=== PATIENT | male | born 1940 | race Caucasian/White ===

== ENCOUNTER 2020-10-18 16:17 | Observation (INO) | payer OTHER ==
[2020-10-18] MEDS ORDERED: MECLIZINE HCL 25 MG TABLET (FP) PO ONE (16:54)
[2020-10-18] MEDS ORDERED: MECLIZINE HCL 25 MG TABLET (FP) ONE (17:09)
[2020-10-18 17:28] LABS: BASO % 0.6 % (0-2.0); EOS % 0.4 % (0-4.5); HEMATOCRIT 44.9 % (35.4-49); HEMOGLOBIN 15.3 GM/dL (11.7-16.9); LYMPH % 12.7 % (8-40); MCH 32.3 pg (25.7-33.7); MCHC 34.2 g/dl (32.0-35.9); MEAN CELL VOLUME 94.6 fl (80-96); MEAN PLT VOLUME 10.3 fl (7.5-11.1); MONO % 6.8 % (3.8-10.2); NEUT % 79.5 % (42.8-82.8); PLATELET COUNT 110 K/MM3 (134-434); RBC 4.74 M/mm3 (4.00-5.60); WHITE BLOOD COUNT 8.1 K/mm3 (4.0-10.0)
[2020-10-18 17:54] LABS: CHLORIDE 106 mmol/L (98-107); SODIUM 138 mmol/L (136-145)
[2020-10-18 17:56] LABS: ALBUMIN 3.8 g/dl (3.4-5.0); ANION GAP 7 MMOL/L (8-16); BLOOD UREA NITROGEN 17.1 mg/dL (7-18); CALCIUM 8.9 mg/dL (8.5-10.1); CO2 26 mmol/L (21-32); GLUCOSE,RANDOM 103 mg/dL (74-106)
[2020-10-18 17:59] LABS: CREATININE 1.2 mg/dL (0.55-1.3); SGOT/AST 34 U/L (15-37); SGPT/ALT 45 U/L (13-61)
[2020-10-18 18:01] LABS: TOT PROT 7.2 g/dl (6.4-8.2)
[2020-10-18 18:02] LABS: ALK PHOS 74 U/L (45-117)
[2020-10-18] MEDS ORDERED: MECLIZINE HCL 25 MG TABLET (FP) PO PRN (20:57)
[2020-10-18] MEDS ORDERED: ATORVASTATIN CA 40 MG TABLET (FP) PO SCH (22:00)
[2020-10-18 23:18] VITALS: BMI 28.9
[2020-10-18 23:53] LABS: EPI CELLS 6 /uL (0-25.1); HYALINE CASTS 0 /uL (0-3.1); PH,URINE 6.5 (5.0-8.0); URINE APPEARANCE CLEAR; URINE BACTERIA 9 /uL (0-1359); URINE BILIRUBIN NEGATIVE (NEGATIVE); URINE COLOR YELLOW; URINE GLUCOSE (UA) NEGATIVE (NEGATIVE); URINE KETONE NEGATIVE (NEGATIVE); URINE LEUK ESTERASE 2+ (NEGATIVE); URINE NITRITE NEGATIVE (NEGATIVE); URINE PROTEIN NEGATIVE (NEGATIVE); URINE RBC 5 /uL (0-23.9); URINE WBC 59 /uL (0-25.8)
[2020-10-19] MEDS: HEPARIN NA (PORCINE) 5,000 UNITS/ML 1ML VIAL SQ SCH ×3 (01:45→13:33)
[2020-10-19 07:48] LABS: HEMOGLOBIN 15.3 GM/dL (11.7-16.9); MCH 32.6 pg (25.7-33.7); MCHC 34.6 g/dl (32.0-35.9); MEAN CELL VOLUME 94.1 fl (80-96); MEAN PLT VOLUME 10.5 fl (7.5-11.1); PLATELET COUNT 93 K/MM3 (134-434); RBC 4.68 M/mm3 (4.00-5.60); WHITE BLOOD COUNT 8.8 K/mm3 (4.0-10.0)
[2020-10-19 07:55] LABS: CHLORIDE 108 mmol/L (98-107); SODIUM 141 mmol/L (136-145)
[2020-10-19 07:56] LABS: CALCIUM 8.8 mg/dL (8.5-10.1)
[2020-10-19 07:57] LABS: ANION GAP 6 MMOL/L (8-16); BLOOD UREA NITROGEN 13.5 mg/dL (7-18); CO2 27 mmol/L (21-32); GLUCOSE,RANDOM 86 mg/dL (74-106); MAGNESIUM 2.2 mg/dL (1.8-2.4)
[2020-10-19 08:00] LABS: CREATININE 1.2 mg/dL (0.55-1.3); PHOSPHOROUS 3.6 mg/dL (2.5-4.9)
[2020-10-19] MEDS ORDERED: TAMSULOSIN HCL 0.4 MG CAP PO SCH (08:30)
[2020-10-19] MEDS ORDERED: LORATADINE 10 MG TABLET PO SCH (10:00)
[2020-10-19] MEDS ORDERED: CEFTRIAXONE 1 GM in DEXTROSE 5%-WATER - 50 ML IVPB SCH (12:00)
[2020-10-19 12:47] VITALS: BP 139/90; PULSE 66; TEMP 98
== END 2020-10-19 13:52 | disposition home or self-care (01) ==
LOC: JER 16:17 → JERBED 18:13 → J4W 18:46
PROVIDERS: ADMIT Student in an Organized Health Care Education/Training Program; ATTEND Nurse Practitioner Acute Care
DX: R42 Dizziness and giddiness (principal); I10 Essential (primary) hypertension; N40.0 Benign prostatic hyperplasia without lower urinary tract symptoms; Z95.0 Presence of cardiac pacemaker; Z95.2 Presence of prosthetic heart valve; Z87.891 Personal history of nicotine dependence; E78.00 Pure hypercholesterolemia, unspecified
CPT/HCPCS: 36415; 70450-TC; 71045-TC-FY; 80048; 80053; 81003; 82550; 82553; 83735; 84100; 84484; 85025; 85027; 87086; 93005; 93010; 97116-GP; 97161-GP; 99285-25; C9803; G0378; J1644; U0003; U0005